=== PATIENT | male | born 1940 | race Hispanic/Latino ===

== ENCOUNTER → 2020-05-17 | Outpatient (CLI) | payer OTHER ==
[~2020-05-17] MED LIST: ATOR-2 PO; BUSP7.5T7 PO; CARV25TA PO; CHOL100044 PO; ENAL10TA18 PO; ESOM40CA54 PO; FERR325T22 PO; FOLI0.8T43 PO; FURO80TA3 PO; INSU100V12 SQ; PARO-37 PO; REGADENOSON 0.4 MG/5 ML PF SYG IVP SCH; TYL3 PO
== END | disposition home or self-care (01) ==
LOC: SHCH 08:08
PROVIDERS: ATTEND Internal Medicine Cardiovascular Disease
DX: I25.10 Atherosclerotic heart disease of native coronary artery without angina pectoris (principal)
CPT/HCPCS: 78452; 93017; 96374; A9500 ×2; J2785

== ENCOUNTER → 2020-08-21 | Outpatient (CLI) | payer OTHER ==
[~2020-08-21] MED LIST changes: -REGADENOSON 0.4 MG/5 ML PF SYG IVP SCH
== END | disposition home or self-care (01) ==
LOC: SHCH 10:00
PROVIDERS: ATTEND Internal Medicine Cardiovascular Disease
DX: G45.9 Transient cerebral ischemic attack, unspecified (principal)
CPT/HCPCS: 93880

== ENCOUNTER 2021-02-28 06:36 | Day surgery (SDC) | payer OTHER ==
[2021-02-26 14:59] LABS: BASOPHILS % (AUTO) 0.5 % (0.0-5.0); EOSINOPHILS % (AUTO) 1.3 % (0.0-8.0); HEMATOCRIT 25.5 % (42-54); LYMPHOCYTES % (AUTO) 24.5 % (21.0-51.0); MEAN CORPUSCULAR HEMOGLOBIN 28.6 pg (27.0-33.0); MEAN CORPUSCULAR HGB CONC 31.8 g/dL (32.0-36.0); MEAN CORPUSCULAR VOLUME 90.1 fL (79-99); MONOCYTES % (AUTO) 12.9 % (3.0-13.0); NEUTROPHILS % (AUTO) 60.4 % (40.0-77.0); PLATELET COUNT (AUTO) 68 K/uL (130-400); RED BLOOD CELL COUNT(AUTO) 2.83 MIL/uL (4.50-6.20); RED CELL DISTRIBUTION WIDTH 15.3 % (11.0-15.5); WHITE BLOOD COUNT (AUTO) 5.6 K/uL (4.8-10.8)
[2021-02-26 15:04] LABS: INR 1.21 (0.85-1.15)
[2021-02-26 15:08] LABS: CREATININE 2.8 mg/dL (0.5-1.5); POTASSIUM 3.3 mmol/L (3.5-5.1)
[2021-02-26 15:35] LABS: APPEARANCE,URINE Clear (CLEAR); BILIRUBIN,URINE Negative (NEGATIVE); COLOR,URINE Yellow (YELLOW); GLUCOSE, URINE (UA) Negative (NEGATIVE); KETONES,URINE Negative (NEGATIVE); LEUKOCYTE ESTERASE ,URINE Negative (NEGATIVE); NITRATE,URINE Negative (NEGATIVE); OCCULT BLOOD,URINE Negative (NEGATIVE); PROTEIN,URINE Negative (NEGATIVE)
[2021-02-27 16:43] VITALS: BP 98/47
[2021-02-28] VITALS (30 sets, daily range): BP systolic 95–118; BP diastolic 48–71
[~2021-02-28] VITALS: Ht 167.6 cm; Wt 87.3 kg
[~2021-02-28 06:36] MED LIST changes: -CARV25TA PO; +DABI150C PO; -ESOM40CA54 PO; -FURO80TA3 PO; -INSU100V12 SQ; +ISOS60TA77 PO; +METO5TAB7 PO; +PANT40TA54 PO; +TORS100T16 PO; -TYL3 PO
[2021-02-28] MEDS ORDERED: LIDOCAINE HCL 2% VISCOUS 15 ML UDCUP ONE (07:52)
[2021-02-28] MEDS ORDERED: FLUMAZENIL 0.1MG/1ML 5ML VIAL IV ONE (07:53)
[2021-02-28] MEDS ORDERED: NALOXONE HCL 0.4 MG/1 ML ML ONE (07:53)
[2021-02-28] MEDS ORDERED: FENTANYL CITRATE PF 50 MCG/1 ML 2ML VIAL ONE (07:54)
[2021-02-28] MEDS ORDERED: MIDAZOLAM HCL 1 MG/ML 2ML VIAL ONE (07:54)
[2021-02-28 10:47] LABS: HEMATOCRIT 26.9 % (42-54); MEAN CORPUSCULAR HEMOGLOBIN 27.9 pg (27.0-33.0); MEAN CORPUSCULAR HGB CONC 30.5 g/dL (32.0-36.0); MEAN CORPUSCULAR VOLUME 91.5 fL (79-99); PLATELET COUNT (AUTO) 69 K/uL (130-400); RED BLOOD CELL COUNT(AUTO) 2.94 MIL/uL (4.50-6.20); RED CELL DISTRIBUTION WIDTH 15.3 % (11.0-15.5)
[2021-02-28 10:55] LABS: CREATININE 2.1 mg/dL (0.5-1.5)
[2021-02-28] MEDS ORDERED: MIDAZOLAM HCL 1 MG/ML 2ML VIAL IVP SCH (11:15)
[2021-02-28] MEDS ORDERED: FENTANYL CITRATE PF 50 MCG/1 ML 2ML VIAL IVP SCH (11:15)
[2021-02-28 11:37] LABS: BASOPHILS % (AUTO) 0.9 % (0.0-5.0); EOSINOPHILS % (AUTO) 0.5 % (0.0-8.0); LYMPHOCYTES % (AUTO) 29.5 % (21.0-51.0); MONOCYTES % (AUTO) 18.4 % (3.0-13.0); NEUTROPHILS % (AUTO) 50.4 % (40.0-77.0)
== END 2021-02-28 12:22 | disposition home or self-care (01) ==
LOC: DAH 06:36
PROVIDERS: ATTEND Internal Medicine Cardiovascular Disease
DX: I07.1 Rheumatic tricuspid insufficiency (principal); I44.30 Unspecified atrioventricular block; I25.10 Atherosclerotic heart disease of native coronary artery without angina pectoris; I11.0 Hypertensive heart disease with heart failure; I50.32 Chronic diastolic (congestive) heart failure; E78.5 Hyperlipidemia, unspecified; E11.9 Type 2 diabetes mellitus without complications; I47.1 Supraventricular tachycardia; Z95.1 Presence of aortocoronary bypass graft; Z79.01 Long term (current) use of anticoagulants; Z79.899 Other long term (current) drug therapy
CPT/HCPCS: 36415 ×2; 71045; 80048 ×2; 81003; 82948; 83880; 85025 ×2; 85610; 85730; 93005; 93308; 93313; A4215; A4216; A4221; A4222; A4223 ×3; A4606; A4615; A4657; A4663; J2250; J3010; J7030; J2310; J3490

== ENCOUNTER 2021-10-24 19:51 | Inpatient (IN) | payer OTHER ==
[~2021-10-24] VITALS: Ht 165.1 cm; Wt 74.4 kg
[~2021-10-24 19:51] MED LIST changes: -DABI150C PO; -ENAL10TA18 PO; -METO5TAB7 PO; -TORS100T16 PO
[2021-10-24 20:30] LABS: BASOPHILS % (AUTO) 0.4 % (0.0-5.0); EOSINOPHILS % (AUTO) 1.2 % (0.0-8.0); HEMATOCRIT 25.7 % (42-54); LYMPHOCYTES % (AUTO) 13.8 % (21.0-51.0); MEAN CORPUSCULAR HEMOGLOBIN 26.7 pg (27.0-33.0); MEAN CORPUSCULAR HGB CONC 29.6 g/dL (32.0-36.0); MEAN CORPUSCULAR VOLUME 90.2 fL (79-99); MONOCYTES % (AUTO) 8.4 % (3.0-13.0); NEUTROPHILS % (AUTO) 75.8 % (40.0-77.0); PLATELET COUNT (AUTO) 163 K/uL (130-400); RED BLOOD CELL COUNT(AUTO) 2.85 MIL/uL (4.50-6.20); RED CELL DISTRIBUTION WIDTH 14.6 % (11.0-15.5); WHITE BLOOD COUNT (AUTO) 6.9 K/uL (4.8-10.8)
[2021-10-24 20:48] LABS: CREATININE 2.2 mg/dL (0.5-1.5); POTASSIUM 3.9 mmol/L (3.5-5.1)
[2021-10-24 20:53] LABS: ALBUMIN 2.9 g/dL (3.5-5.0); BILIRUBIN,TOTAL 0.5 mg/dL (0.2-1.0); INR 1.14 (0.85-1.15); PROTHROMBIN TIME 12.3 SEC (9.6-11.6)
[2021-10-24 20:55] LABS: PARTIAL THROMBOPLASTIN TIME 28.5 SEC (26.3-35.5)
[2021-10-24 20:56] LABS: B-TYPE NATRIURETIC PEPTIDE 723 pg/mL (0-100)
[2021-10-24] MEDS ORDERED: BUMETANIDE 2.5MG/10ML VIAL 40 ML IV SCH (21:00)
[2021-10-24] MEDS ORDERED: POTASSIUM CHLORIDE 20MEQ/100ML 100 ML IV PRN (21:00)
[2021-10-24] MEDS ORDERED: POTASSIUM CHLORIDE 10% ELIXIR 20 MEQ/15 ML UDCUP PO PRN (21:00)
[2021-10-24] MEDS ORDERED: LIDOCAINE HCL-MPF 1% 2ML VIAL IV PRN (21:00)
[2021-10-24 21:27] LABS: APPEARANCE,URINE Clear (CLEAR); BILIRUBIN,URINE Negative (NEGATIVE); COLOR,URINE Yellow (YELLOW); GLUCOSE, URINE (UA) Negative (NEGATIVE); KETONES,URINE Negative (NEGATIVE); LEUKOCYTE ESTERASE ,URINE Negative (NEGATIVE); NITRATE,URINE Negative (NEGATIVE); OCCULT BLOOD,URINE Negative (NEGATIVE); PROTEIN,URINE Negative (NEGATIVE); UROBILINOGEN,URINE 0.2 mg/dL (0.2-1.0)
[2021-10-24 21:52] LABS: RBC,URINE 0-1 /HPF (0-1); WBC,URINE 0-1 /HPF (0-1)
[2021-10-24 21:53] LABS: BACTERIA,URINE Rare /HPF (None Seen); HYALINE CASTS, URINE 0-1 /LPF (0-1 /LPF); SQUAMOUS EPITHELIAL CELL,UR Rare /HPF (0-2)
[2021-10-24] MEDS: MILRINONE-D5W 20 MG/100 ML 100 ML IV SCH (22:27)
[2021-10-24] MEDS ORDERED: ACETAMINOPHEN 325 MG TAB ONE (22:34)
[2021-10-24 23:18] LABS: HEMOGLOBIN A1C 7.2 % (4.0-6.0)
[2021-10-25] MEDS: MILRINONE-D5W 20 MG/100 ML 100 ML IV SCH (07:09)
[2021-10-25] MEDS: INSULIN HUMULIN R 100 UNIT/ML 3ML SQ SCH ×4 (07:30→21:00)
[2021-10-25] MEDS: ACETAMINOPHEN 325 MG TAB PO PRN (08:12)
[2021-10-25 08:46] LABS: BASOPHILS % (AUTO) 0.5 % (0.0-5.0); EOSINOPHILS % (AUTO) 1.1 % (0.0-8.0); HEMATOCRIT 23.5 % (42-54); LYMPHOCYTES % (AUTO) 13.4 % (21.0-51.0); MEAN CORPUSCULAR HEMOGLOBIN 26.3 pg (27.0-33.0); MEAN CORPUSCULAR HGB CONC 30.2 g/dL (32.0-36.0); MONOCYTES % (AUTO) 9.6 % (3.0-13.0); NEUTROPHILS % (AUTO) 74.9 % (40.0-77.0); PLATELET COUNT (AUTO) 166 K/uL (130-400); RED CELL DISTRIBUTION WIDTH 14.9 % (11.0-15.5); WHITE BLOOD COUNT (AUTO) 7.5 K/uL (4.8-10.8)
[2021-10-25 09:01] LABS: % IRON SATURATION 7.5 % (30-44)
[2021-10-25 09:13] LABS: CREATININE 1.9 mg/dL (0.5-1.5); MAGNESIUM 2.1 mg/dL (1.80-2.40); POTASSIUM 3.7 mmol/L (3.5-5.1)
[2021-10-25] MEDS: ENOXAPARIN SODIUM 40 MG/0.4 ML SYRINGE SQ SCH (10:22)
[2021-10-25] MEDS: FAMOTIDINE 20MG TAB PO SCH (10:22)
[2021-10-25] MEDS: ASPIRIN 81MG CHEW TAB PO SCH (11:30)
[2021-10-25] MEDS: CARVEDILOL 3.125 MG TABLET PO SCH ×2 (11:30→21:54)
[2021-10-25] MEDS: ATORVASTATIN 40 MG TABLET PO SCH (21:54)
[2021-10-25 23:54] VITALS: BP 134/49
[2021-10-26 03:10] VITALS: BP 130/59
[2021-10-26] MEDS ORDERED: POTA-193 PO (05:58)
[2021-10-26] MEDS ORDERED: TORS100T16 PO ×2 (05:59→06:00)
[2021-10-26] MEDS ORDERED: CARV25TA77 PO (06:01)
[2021-10-26] MEDS: INSULIN HUMULIN R 100 UNIT/ML 3ML SQ SCH ×4 (06:41→20:29)
[2021-10-26 08:47] VITALS: BP 109/67
[2021-10-26] MEDS: ENOXAPARIN SODIUM 40 MG/0.4 ML SYRINGE SQ SCH (09:01)
[2021-10-26] MEDS: ASPIRIN 81MG CHEW TAB PO SCH (09:01)
[2021-10-26] MEDS: FAMOTIDINE 20MG TAB PO SCH (09:02)
[2021-10-26] MEDS: CARVEDILOL 3.125 MG TABLET PO SCH ×2 (09:02→20:28)
[2021-10-26] MEDS: BUMETANIDE 2.5MG/10ML VIAL 80 ML IV SCH (09:04)
[2021-10-26 09:05] LABS: CREATININE 1.8 mg/dL (0.5-1.5); POTASSIUM 3.2 mmol/L (3.5-5.1)
[2021-10-26] MEDS ORDERED: POTASSIUM CHLORIDE 20 MEQ/100 ML BAG IV SCH (10:30)
[2021-10-26] MEDS ORDERED: KCL 20 MEQ ERTAB PO SCH (10:30)
[2021-10-26 14:40] LABS: BASOPHILS % (AUTO) 0.3 % (0.0-5.0); EOSINOPHILS % (AUTO) 0.8 % (0.0-8.0); HEMATOCRIT 23.4 % (42-54); LYMPHOCYTES % (AUTO) 16.7 % (21.0-51.0); MEAN CORPUSCULAR HEMOGLOBIN 26.9 pg (27.0-33.0); MEAN CORPUSCULAR HGB CONC 29.9 g/dL (32.0-36.0); MONOCYTES % (AUTO) 9.1 % (3.0-13.0); NEUTROPHILS % (AUTO) 72.9 % (40.0-77.0); PLATELET COUNT (AUTO) 159 K/uL (130-400); RED CELL DISTRIBUTION WIDTH 14.9 % (11.0-15.5); WHITE BLOOD COUNT (AUTO) 5.9 K/uL (4.8-10.8)
[2021-10-26] MEDS ORDERED: COMPOUND IV MISC 1 EACH IVSOLN MISC PRN (15:00)
[2021-10-26] MEDS: MILRINONE-D5W 20 MG/100 ML 100 ML IV SCH (16:03)
[2021-10-26 16:40] VITALS: BP 110/43
[2021-10-26 19:17] VITALS: BP 131/58
[2021-10-26] MEDS: ATORVASTATIN 40 MG TABLET PO SCH (20:27)
[2021-10-26] MEDS: KCL 20 MEQ ERTAB PO SCH (20:28)
[2021-10-26] MEDS: ACETAMINOPHEN 325 MG TAB PO PRN (22:24)
[2021-10-26 23:51] VITALS: BP 123/53
[2021-10-27 03:06] VITALS: BP 109/50
[2021-10-27 04:03] LABS: HEMATOCRIT 22.1 % (42-54); MEAN CORPUSCULAR VOLUME 89.8 fL (79-99); RED BLOOD CELL COUNT(AUTO) 2.46 MIL/uL (4.50-6.20); RED CELL DISTRIBUTION WIDTH 14.9 % (11.0-15.5); WHITE BLOOD COUNT (AUTO) 5.5 K/uL (4.8-10.8)
[2021-10-27 04:14] LABS: ALBUMIN 2.4 g/dL (3.5-5.0); BILIRUBIN,TOTAL 0.4 mg/dL (0.2-1.0); CREATININE 1.6 mg/dL (0.5-1.5); POTASSIUM 3.5 mmol/L (3.5-5.1)
[2021-10-27] MEDS: KCL 20 MEQ ERTAB PO PRN (05:42)
[2021-10-27] MEDS: INSULIN HUMULIN R 100 UNIT/ML 3ML SQ SCH ×4 (06:09→20:37)
[2021-10-27 07:00] VITALS: BP 117/59
[2021-10-27] MEDS: FAMOTIDINE 20MG TAB PO SCH (08:56)
[2021-10-27] MEDS: KCL 20 MEQ ERTAB PO SCH ×2 (08:56→11:09)
[2021-10-27] MEDS: ASPIRIN 81MG CHEW TAB PO SCH (08:57)
[2021-10-27] MEDS: CARVEDILOL 3.125 MG TABLET PO SCH ×2 (08:57→20:27)
[2021-10-27] MEDS: IRON SUCROSE COMPLEX 100 MG in 0.9%NACL 50ML 50 ML IV SCH (09:00)
[2021-10-27 11:00] VITALS: BP 130/64
[2021-10-27] MEDS: LACTULOSE 20 GM/30 ML UDCUP PO SCH (11:08)
[2021-10-27] MEDS: PANTOPRAZOLE 40 MG/VIAL IVP SCH ×2 (11:09→20:28)
[2021-10-27 11:41] LABS: APPEARANCE,URINE CLOUDY (CLEAR); BILIRUBIN,URINE NEGATIVE (NEGATIVE); COLOR,URINE RED (YELLOW); GLUCOSE, URINE (UA) NEGATIVE (NEGATIVE); KETONES,URINE NEGATIVE (NEGATIVE); LEUKOCYTE ESTERASE ,URINE SMALL (NEGATIVE); NITRATE,URINE NEGATIVE (NEGATIVE); OCCULT BLOOD,URINE LARGE (NEGATIVE); PROTEIN,URINE NEGATIVE (NEGATIVE); UROBILINOGEN,URINE 0.2 mg/dL (0.2-1.0)
[2021-10-27 11:55] LABS: RBC,URINE 51-100 /HPF (0-1)
[2021-10-27 11:56] LABS: BACTERIA,URINE Few /HPF (None Seen); SQUAMOUS EPITHELIAL CELL,UR Rare /HPF (0-2); WBC,URINE 0-1 /HPF (0-1)
[2021-10-27] MEDS: CEFTRIAXONE 1G VIAL IVP SCH (14:12)
[2021-10-27] MEDS: MILRINONE-D5W 20 MG/100 ML 100 ML IV SCH (14:41)
[2021-10-27 15:49] LABS: HEMATOCRIT 24.4 % (42-54)
[2021-10-27 16:00] VITALS: BP 107/56
[2021-10-27 19:06] VITALS: BP 136/68
[2021-10-27] MEDS: ACETAMINOPHEN 325 MG TAB PO PRN (20:28)
[2021-10-27] MEDS: ATORVASTATIN 40 MG TABLET PO SCH (20:28)
[2021-10-27 23:46] VITALS: BP 110/54
[2021-10-28] MEDS: MILRINONE-D5W 20 MG/100 ML 100 ML IV SCH ×2 (03:15→15:27)
[2021-10-28 03:52] VITALS: BP 125/61
[2021-10-28 03:56] LABS: BASOPHILS % (AUTO) 0.6 % (0.0-5.0); EOSINOPHILS % (AUTO) 1.2 % (0.0-8.0); HEMATOCRIT 23.7 % (42-54); LYMPHOCYTES % (AUTO) 18.4 % (21.0-51.0); MEAN CORPUSCULAR HEMOGLOBIN 27.5 pg (27.0-33.0); MEAN CORPUSCULAR HGB CONC 31.2 g/dL (32.0-36.0); MEAN CORPUSCULAR VOLUME 88.1 fL (79-99); MONOCYTES % (AUTO) 11.3 % (3.0-13.0); NEUTROPHILS % (AUTO) 67.9 % (40.0-77.0); PLATELET COUNT (AUTO) 137 K/uL (130-400); RED BLOOD CELL COUNT(AUTO) 2.69 MIL/uL (4.50-6.20); RED CELL DISTRIBUTION WIDTH 14.8 % (11.0-15.5); WHITE BLOOD COUNT (AUTO) 4.9 K/uL (4.8-10.8)
[2021-10-28 04:18] LABS: CREATININE 1.3 mg/dL (0.5-1.5); MAGNESIUM 1.9 mg/dL (1.80-2.40); POTASSIUM 3.8 mmol/L (3.5-5.1)
[2021-10-28] MEDS: INSULIN HUMULIN R 100 UNIT/ML 3ML SQ SCH ×4 (06:04→21:00)
[2021-10-28] MEDS: BUMETANIDE 2.5MG/10ML VIAL 80 ML IV SCH (06:05)
[2021-10-28 07:00] VITALS: BP 107/74
[2021-10-28] MEDS: LACTULOSE 20 GM/30 ML UDCUP PO SCH (07:25)
[2021-10-28] MEDS: ASPIRIN 81MG CHEW TAB PO SCH (07:26)
[2021-10-28] MEDS: KCL 20 MEQ ERTAB PO SCH ×2 (07:52→20:59)
[2021-10-28] MEDS: PAROXETINE HCL 20 MG TABLET PO SCH (07:52)
[2021-10-28] MEDS: CARVEDILOL 3.125 MG TABLET PO SCH ×2 (07:52→21:00)
[2021-10-28] MEDS: Vitamin B Complex/Vit C/Folic Acid PO SCH (07:52)
[2021-10-28] MEDS: IRON SUCROSE COMPLEX 100 MG in 0.9%NACL 50ML 50 ML IV SCH (07:55)
[2021-10-28] MEDS: PANTOPRAZOLE 40 MG/VIAL IVP SCH ×2 (07:55→21:00)
[2021-10-28 11:10] VITALS: BP 128/58
[2021-10-28] MEDS: CEFTRIAXONE 1G VIAL IVP SCH (11:16)
[2021-10-28 15:28] VITALS: BP 112/62
[2021-10-28 19:54] VITALS: BP 122/60
[2021-10-28] MEDS: ATORVASTATIN 40 MG TABLET PO SCH (20:59)
[2021-10-29 00:41] VITALS: BP 118/61
[2021-10-29 04:57] VITALS: BP 110/54
[2021-10-29] MEDS: INSULIN HUMULIN R 100 UNIT/ML 3ML SQ SCH ×4 (07:30→22:42)
[2021-10-29 08:00] VITALS: BP 114/52
[2021-10-29] MEDS: ASPIRIN 81MG CHEW TAB PO SCH ×2 (09:00→10:19)
[2021-10-29] MEDS: PANTOPRAZOLE 40 MG/VIAL IVP SCH ×2 (10:19→22:22)
[2021-10-29] MEDS: KCL 20 MEQ ERTAB PO SCH ×2 (10:20→22:22)
[2021-10-29] MEDS: Vitamin B Complex/Vit C/Folic Acid PO SCH (10:20)
[2021-10-29] MEDS: PAROXETINE HCL 20 MG TABLET PO SCH (10:20)
[2021-10-29] MEDS: IRON SUCROSE COMPLEX 100 MG in 0.9%NACL 50ML 50 ML IV SCH (10:28)
[2021-10-29] MEDS: LACTULOSE 20 GM/30 ML UDCUP PO SCH (11:00)
[2021-10-29 12:00] VITALS: BP 106/48
[2021-10-29 12:08] LABS: HEMATOCRIT 26.7 % (42-54); MEAN CORPUSCULAR HEMOGLOBIN 27.2 pg (27.0-33.0); MEAN CORPUSCULAR HGB CONC 31.1 g/dL (32.0-36.0); MEAN CORPUSCULAR VOLUME 87.5 fL (79-99); PLATELET COUNT (AUTO) 139 K/uL (130-400); RED BLOOD CELL COUNT(AUTO) 3.05 MIL/uL (4.50-6.20); RED CELL DISTRIBUTION WIDTH 14.5 % (11.0-15.5); WHITE BLOOD COUNT (AUTO) 5.5 K/uL (4.8-10.8)
[2021-10-29 12:22] LABS: ALBUMIN 2.6 g/dL (3.5-5.0); BILIRUBIN,TOTAL 0.5 mg/dL (0.2-1.0); CREATININE 1.3 mg/dL (0.5-1.5); POTASSIUM 3.3 mmol/L (3.5-5.1); TOTAL PROTEIN, SERUM 7.6 g/dL (6.0-8.3)
[2021-10-29 12:40] LABS: BASOPHILS % (AUTO) 0.6 % (0.0-5.0); EOSINOPHILS % (AUTO) 1.7 % (0.0-8.0); LYMPHOCYTES % (AUTO) 14.2 % (21.0-51.0); MONOCYTES % (AUTO) 9.2 % (3.0-13.0); NEUTROPHILS % (AUTO) 73.9 % (40.0-77.0)
[2021-10-29] MEDS: CEFTRIAXONE 1G VIAL IVP SCH (13:24)
[2021-10-29] MEDS: KCL 20 MEQ ERTAB PO PRN (13:26)
[2021-10-29] MEDS: MILRINONE-D5W 20 MG/100 ML 100 ML IV SCH (15:59)
[2021-10-29 16:00] VITALS: BP 115/60
[2021-10-29] MEDS: BUMETANIDE 2.5MG/10ML VIAL 80 ML IV SCH (18:16)
[2021-10-29 19:27] VITALS: BP 106/53
[2021-10-29] MEDS ORDERED: ALPRAZOLAM 0.5 MG TABLET PO SCH (21:15)
[2021-10-29] MEDS: ATORVASTATIN 40 MG TABLET PO SCH (22:22)
[2021-10-29] MEDS: CARVEDILOL 6.25 MG TABLET PO SCH (22:23)
[2021-10-29] MEDS: SACUBITRIL/VALSARTAN 1 EACH TABLET PO SCH (22:23)
[2021-10-30 00:20] VITALS: BP 112/56
[2021-10-30 03:40] VITALS: BP 100/59
[2021-10-30 03:47] LABS: BASOPHILS % (AUTO) 0.4 % (0.0-5.0); EOSINOPHILS % (AUTO) 1.3 % (0.0-8.0); HEMATOCRIT 24.2 % (42-54); MEAN CORPUSCULAR HEMOGLOBIN 26.7 pg (27.0-33.0); MEAN CORPUSCULAR HGB CONC 30.6 g/dL (32.0-36.0); MEAN CORPUSCULAR VOLUME 87.4 fL (79-99); MONOCYTES % (AUTO) 9.7 % (3.0-13.0); NEUTROPHILS % (AUTO) 68.4 % (40.0-77.0); PLATELET COUNT (AUTO) 118 K/uL (130-400); RED BLOOD CELL COUNT(AUTO) 2.77 MIL/uL (4.50-6.20); RED CELL DISTRIBUTION WIDTH 14.3 % (11.0-15.5); WHITE BLOOD COUNT (AUTO) 4.8 K/uL (4.8-10.8)
[2021-10-30 04:00] LABS: ALBUMIN 2.4 g/dL (3.5-5.0); BILIRUBIN,TOTAL 0.4 mg/dL (0.2-1.0); CREATININE 1.4 mg/dL (0.5-1.5); POTASSIUM 3.5 mmol/L (3.5-5.1); TOTAL PROTEIN, SERUM 6.9 g/dL (6.0-8.3)
[2021-10-30] MEDS: MILRINONE-D5W 20 MG/100 ML 100 ML IV SCH (04:40)
[2021-10-30] MEDS: KCL 20 MEQ ERTAB PO PRN ×2 (06:51→16:04)
[2021-10-30] MEDS: INSULIN HUMULIN R 100 UNIT/ML 3ML SQ SCH ×4 (07:30→21:00)
[2021-10-30 08:00] VITALS: BP 104/53
[2021-10-30] MEDS: Vitamin B Complex/Vit C/Folic Acid PO SCH (09:08)
[2021-10-30] MEDS: CARVEDILOL 6.25 MG TABLET PO SCH ×2 (09:12→21:03)
[2021-10-30] MEDS: BUSPIRONE HCL 5 MG TABLET PO SCH (09:12)
[2021-10-30] MEDS: PANTOPRAZOLE 40 MG/VIAL IVP SCH ×2 (09:13→21:01)
[2021-10-30] MEDS: KCL 20 MEQ ERTAB PO SCH ×3 (09:15→21:01)
[2021-10-30] MEDS: PAROXETINE HCL 20 MG TABLET PO SCH (09:15)
[2021-10-30] MEDS: ASPIRIN 81MG CHEW TAB PO SCH (09:16)
[2021-10-30] MEDS: ACETAMINOPHEN 325 MG TAB PO PRN (09:24)
[2021-10-30] MEDS: TORSEMIDE 20 MG TAB PO SCH ×2 (10:14→21:01)
[2021-10-30] MEDS: CEFTRIAXONE 1G VIAL IVP SCH (11:39)
[2021-10-30 12:00] VITALS: BP 96/42
[2021-10-30 16:00] VITALS: BP 98/49
[2021-10-30 19:29] VITALS: BP 107/54
[2021-10-30] MEDS: SACUBITRIL/VALSARTAN 1 EACH TABLET PO SCH (21:00)
[2021-10-30] MEDS: ATORVASTATIN 40 MG TABLET PO SCH (21:01)
[2021-10-31 00:10] VITALS: BP 124/58
[2021-10-31] MEDS ORDERED: ALPRAZOLAM 0.5 MG TABLET PO ONE (00:30)
[2021-10-31 04:08] VITALS: BP 113/55
[2021-10-31 04:21] LABS: CREATININE 1.8 mg/dL (0.5-1.5); POTASSIUM 4.5 mmol/L (3.5-5.1)
[2021-10-31] MEDS: INSULIN HUMULIN R 100 UNIT/ML 3ML SQ SCH ×3 (05:46→15:52)
[2021-10-31 08:00] VITALS: BP 109/56
[2021-10-31] MEDS: KCL 20 MEQ ERTAB PO SCH (09:10)
[2021-10-31] MEDS: PANTOPRAZOLE 40 MG/VIAL IVP SCH (09:10)
[2021-10-31] MEDS: ASPIRIN 81MG CHEW TAB PO SCH (09:11)
[2021-10-31] MEDS: Vitamin B Complex/Vit C/Folic Acid PO SCH (09:11)
[2021-10-31] MEDS: BUSPIRONE HCL 5 MG TABLET PO SCH (09:11)
[2021-10-31] MEDS: PAROXETINE HCL 20 MG TABLET PO SCH (09:11)
[2021-10-31] MEDS: CARVEDILOL 6.25 MG TABLET PO SCH (09:12)
[2021-10-31] MEDS: TORSEMIDE 20 MG TAB PO SCH (09:12)
[2021-10-31] MEDS ORDERED: ASPI-1005 PO (11:02)
[2021-10-31] MEDS ORDERED: CARV6.2579 PO (11:02)
[2021-10-31] MEDS ORDERED: SACU1TAB PO (11:02)
[2021-10-31] MEDS ORDERED: POTA-193 PO (11:02)
[2021-10-31] MEDS: CEFTRIAXONE 1G VIAL IVP SCH (11:30)
[2021-10-31 11:47] VITALS: BP 120/51
[2021-10-31 16:19] VITALS: BP 108/57
[2021-10-31] MEDS ORDERED: TORSEMIDE 20 MG TAB PO SCH (21:00)
[2021-11-01] MEDS ORDERED: TORSEMIDE 20 MG TAB PO SCH (09:00)
== END 2021-10-31 18:18 | disposition home or self-care (01) | DRG 291 ==
LOC: EDH 19:51 → EDHIP 19:52 → UNDOADMIN 20:58 → 4CH 10-25 01:58 → EDHIP 10-25 01:58 → 4CH 10-25 02:31 → EDHIP 10-25 02:31 → 2DH 10-25 23:51
PROVIDERS: ADMIT Internal Medicine; ATTEND Internal Medicine
PROC: 30233N1 Transfusion of Nonautologous Red Blood Cells into Peripheral Vein, Percutaneous Approach (ICD-10-PCS; principal; 2021-10-27)
DX: I13.0 Hypertensive heart and chronic kidney disease with heart failure and stage 1 through stage 4 chronic kidney disease, or unspecified chronic kidney disease (principal); J96.21 Acute and chronic respiratory failure with hypoxia; I50.43 Acute on chronic combined systolic (congestive) and diastolic (congestive) heart failure; D62 Acute posthemorrhagic anemia; I50.82 Biventricular heart failure; I07.1 Rheumatic tricuspid insufficiency; I25.5 Ischemic cardiomyopathy; N18.30 Chronic kidney disease, stage 3 unspecified; E11.22 Type 2 diabetes mellitus with diabetic chronic kidney disease; Z20.822 Contact with and (suspected) exposure to COVID-19; I25.10 Atherosclerotic heart disease of native coronary artery without angina pectoris; D50.9 Iron deficiency anemia, unspecified; E11.51 Type 2 diabetes mellitus with diabetic peripheral angiopathy without gangrene; E78.5 Hyperlipidemia, unspecified; I27.29 Other secondary pulmonary hypertension; I35.0 Nonrheumatic aortic (valve) stenosis; I48.91 Unspecified atrial fibrillation; D69.6 Thrombocytopenia, unspecified; R31.9 Hematuria, unspecified; N50.89 Other specified disorders of the male genital organs; Z79.01 Long term (current) use of anticoagulants; Z79.4 Long term (current) use of insulin; Z79.899 Other long term (current) drug therapy; Z87.891 Personal history of nicotine dependence; Z95.3 Presence of xenogenic heart valve; Z95.810 Presence of automatic (implantable) cardiac defibrillator; Z82.3 Family history of stroke; Z83.3 Family history of diabetes mellitus; Z82.49 Family history of ischemic heart disease and other diseases of the circulatory system
CPT/HCPCS: 36415; 36430; 71045; 80048; 80053; 81001; 82270; 82728; 82948; 83036; 83540; 83550; 83735; 83880; 84145; 84484; 85014; 85018; 85025; 85027; 85610; 85730; 86850; 86900; 86901; 86923; 87635; 87804; 87880; 93005; 93306; 93356; 94760; 97039; C9113; G0378; J0696; J1650; J1756; J1815; J2260; J3480; J3490; P9016

== ENCOUNTER → 2022-01-08 | Outpatient (CLI) | payer OTHER ==
[~2022-01-08] MED LIST changes: +ASPI-1005 PO; +CARV6.2579 PO; -ISOS60TA77 PO; +POTA-193 PO; +SACU1TAB PO; +TORS100T16 PO
[2022-01-08 12:35] LABS: CREATININE 2.5 mg/dL (0.5-1.5); POTASSIUM 3.5 mmol/L (3.5-5.1)
== END ==
LOC: LAB 11:34
PROVIDERS: ATTEND Internal Medicine Cardiovascular Disease
DX: I50.22 Chronic systolic (congestive) heart failure (principal)
CPT/HCPCS: 36415; 80048; 83880

== ENCOUNTER → 2022-02-26 | Outpatient (CLI) | payer OTHER ==
[2022-02-26 13:06] LABS: CREATININE 2.3 mg/dL (0.5-1.5)
[2022-02-26 13:10] LABS: POTASSIUM 2.9 mmol/L (3.5-5.1)
== END | disposition home or self-care (01) ==
LOC: LAB 11:45
PROVIDERS: ATTEND Internal Medicine Cardiovascular Disease
DX: I50.23 Acute on chronic systolic (congestive) heart failure (principal)
CPT/HCPCS: 36415; 80048

== ENCOUNTER → 2022-03-07 | Outpatient (CLI) | payer OTHER ==
[2022-03-07 12:57] LABS: CREATININE 2.1 mg/dL (0.5-1.5); POTASSIUM 4.2 mmol/L (3.5-5.1)
== END | disposition home or self-care (01) ==
LOC: LAB 08:30
PROVIDERS: ATTEND Internal Medicine Cardiovascular Disease
DX: I10 Essential (primary) hypertension (principal)
CPT/HCPCS: 36415; 80048

== ENCOUNTER → 2022-05-07 | Outpatient (CLI) | payer OTHER ==
[2022-05-07 12:59] LABS: CREATININE 2.5 mg/dL (0.5-1.5); POTASSIUM 3.2 mmol/L (3.5-5.1)
== END | disposition home or self-care (01) ==
LOC: LAB 12:14
PROVIDERS: ATTEND Internal Medicine Cardiovascular Disease
DX: I50.22 Chronic systolic (congestive) heart failure (principal)
CPT/HCPCS: 36415; 80048; 83880